=== PATIENT | female | born 1990 | race Hispanic/Latino ===

== ENCOUNTER 2017-10-24 13:53 | Emergency (ER) | payer BC ==
[2017-10-24 14:01] VITALS: BP 121/72; PULSE 109; RESP 16; TEMP 98.2; O2SAT 100
--- NOTE | 2017-10-24 15:57 | ED PDOC ---
Lower Extremity Pain/Injury Time Seen by Provider: 10/24/17 14:44 Chief Complaint (Nursing): Lower Extremity Problem/Injury Chief Complaint (Provider): Ankle pain History Per: Patient History/Exam Limitations: no limitations Onset/Duration Of Symptoms: Hrs (earlier today) Current Symptoms Are (Timing): Still Present Additional Complaint(s): Jesica Celeste is a 26 year old female, with no significant past medical history, who presents to the emergency department complaining of left ankle pain s/p fall onset earlier today. Patient reports she was rock climbing, fell off the rock that was approximately 6ft high and twisted her left ankle. She denies any numbness or tingling. No further medical complaints. PMD: None provided. - Ankle/Foot Description Of Injury: Twisted Past Medical History Reviewed: Historical Data, Nursing Documentation, Vital Signs Vital Signs: Last Vital Signs Temp 98.2 F 10/24/17 13:59 Pulse 109 H 10/24/17 13:59 Resp 16 10/24/17 13:59 BP 121/72 10/24/17 13:59 Pulse Ox 100 10/24/17 13:59 - Medical History PMH: No Chronic Diseases - Surgical History Surgical History: No Surg Hx - Family History Family History: States: Unknown Family Hx - Social History Current smoker - smoking cessation education provided: No Alcohol: None Drugs: Denies - Home Medications Home Medications: Ambulatory Orders Medication Instructions Recorded oxyCODONE/Acetaminophen [Percocet 1 ea PO Q6 PRN #10 tab 10/24/17 5/325 mg Tab] - Allergies Allergies/Adverse Reactions: Allergies Allergy/AdvReac Type Severity Reaction Status Date / Time No Known Allergies Allergy Verified 10/24/17 13:58 Review of Systems ROS Statement: Except As Marked, All Systems Reviewed And Found Negative Musculoskeletal: Positive for: Foot Pain (left ankle) Neurological: Negative for: Numbness (or tingling) Physical Exam - Reviewed Nursing Documentation Reviewed: Yes Vital Signs Reviewed: Yes - Physical Exam Appears: Positive for: Well, Non-toxic, No Acute Distress Head Exam: Positive for: ATRAUMATIC, NORMAL INSPECTION, NORMOCEPHALIC Skin: Positive for: Normal Color, Warm, Dry Eye Exam: Positive for: Normal appearance Neck: Positive for: Painless ROM Respiratory: Negative for: Respiratory Distress Pulses-Dorsalis Pedis (L): 2+ Pulses-Dorsalis Pedis (R): 2+ Extremity: Positive for: Tenderness (left ankle moderate tenderness to lateral malleolus. ), Capillary Refill (<2 sec), Swelling (left ankle moderate ). Negative for: Deformity, Other (No foot, leg, or knee tenderness) Neurologic/Psych: Positive for: Alert, Oriented (x3). Negative for: Motor/ Sensory Deficits - ECG O2 Sat by Pulse Oximetry: 100 (RA) Pulse Ox Interpretation: Normal - Radiology X-Ray: Interpreted by Me (L ankle x-ray) X-Ray Interpretation: Other (possible avulsion fx at distal medial malleolus) - Progress ED Course And Treament: Pt. initially refused pain meds. Ice pack applied. X-ray ordered. 1555 Pt. requesting pain meds. Naproxen 500mg PO ordered. X-rays reviewed which showed possible avulsion fx. 1630 Pt. evaluated by Harpal, podiatry resident, who spoke with Dr. Carr. Pt. splinted by Harpal in ED and arranged for outpt f/u in podiatry clinic Pt. searched on [place] [employer] Aware and shows no previous narcotic rx's. Pt. will be prescribed Percocet. Informed of risks of abuse and dependence. Instructed to first take NSAIDs for pain and if pain is unrelieved then pt. is to take Percocet. Medical Decision Making Medical Decision Making: Initial Impression: Ankle injury Initial Plan: --Ankle left 3 views routine [RAD] --reevaluation 16:01 Ankle X-Ray FINDINGS: BONES: is a small ossicles adjacent and distal to the medial malleolus may represent small avulsion fracture. Otherwise no evidence of acute fracture. JOINTS: Normal. No osteoarthritis. Ankle mortise maintained. Talar dome intact SOFT TISSUES: Moderate soft tissue swelling more prominent at the lateral malleolus. OTHER FINDINGS: None. IMPRESSION: Small ossicle adjacent to the medial malleolus may represent small avulsion fracture. Moderate soft tissue swelling more prominent at the lateral malleolus. ~ Scribe Attestation: Documented by David Duke, acting as a scribe for Walker Bahena PA-C. Provider Scribe Attestation: All medical record entries made by the Scribe were at my direction and personally dictated by me. I have reviewed the chart and agree that the record accurately reflects my personal performance of the history, physical exam, medical decision making, and the department course for this patient. I have also personally directed, reviewed, and agree with the discharge instructions and disposition. Disposition - Clinical Impression Clinical Impression: Ankle fracture - Patient ED Disposition Is Patient to be Admitted: No - Disposition Referrals: Podiatry Clinic [Outside] Disposition: Routine/Home Disposition Time: 16:58 Condition: STABLE Prescriptions: oxyCODONE/Acetaminophen [Percocet 5/325 mg Tab] 1 ea PO Q6 PRN #10 tab PRN Reason: Pain Instructions: Ankle Fracture (ED), Splint Care (ED), Crutch Instructions (ED) Forms: [employer] (Danish), [facility] ED School/Work Excuse Print Language: BOLIVIAN
--- NOTE | 2017-10-24 16:02 | RAD ---
PROCEDURE: Left Ankle Radiographs. HISTORY: trauma COMPARISON: None FINDINGS: BONES: is a small ossicles adjacent and distal to the medial malleolus may represent small avulsion fracture. Otherwise no evidence of acute fracture. JOINTS: Normal. No osteoarthritis. Ankle mortise maintained. Talar dome intact SOFT TISSUES: Moderate soft tissue swelling more prominent at the lateral malleolus. OTHER FINDINGS: None. IMPRESSION: Small ossicle adjacent to the medial malleolus may represent small avulsion fracture. Moderate soft tissue swelling more prominent at the lateral malleolus.
--- NOTE | 2017-10-24 17:24 | CP.PCM.CON ---
History of Present Illness - History of Present Illness History of Present Illness: 26 year old female seen in ED complaining of left ankle pain. 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 Patient felt immediate pain to her left ankle and was unable to weightbear following the injury. Patient states that ankle has become swollen since injury. Patient denies any further pedal complaints at this time. Denies N /V/F/C/CP/SOB/D/posterior calf pain. Patient was AAO x 3 during examination. She denies taking any medication to help with the pain. Review of Systems - Review of Systems Review of Systems: ROS as per HPI Past Patient History - Past Social History Alcohol: None Drugs: Denies - PSYCHIATRIC Hx Substance Use: No - SURGICAL HISTORY Hx Surgeries: No Meds Home Medications: Home Medication List Medication Instructions Recorded Confirmed Type oxyCODONE/Acetaminophen [Percocet 1 ea PO Q6 PRN #10 tab 10/24/17 Rx 5/325 mg Tab] Allergies/Adverse Reactions: Allergies Allergy/AdvReac Type Severity Reaction Status Date / Time No Known Allergies Allergy Verified 10/24/17 13:58 Physical Exam - Constitutional Appears: Well, Non-toxic, No Acute Distress - Extremities Exam Additional comments: LLE focused exam: Vasc: DP/PT pulses palpable 2/4 b/l. Skin temperature warm to warm from proximal to distal, WNL. CFT < 3 seconds to all digits b/l. Moderate edema noted to medial and lateral mal of left leg Neuro: Epicritic and protective sensation grossly intact b/l Derm: Minimal ecchymosis noted to medial malleolus. No open lesions, wounds, maceration, xerosis or abnormal growths noted b/l. Nails well manicured and normotrophic 1-10 b/l MSK: Severe POP to medial and lateral malleolus with medial mal > lateral. No POP to proximal fibula, achilles tendon or its insertion site, styloid process of fifth metatarsal, Navicular tuberosity, or lis franc joint. Pain at ankle joint with dorsiflexion and plantarflexion - Neurological Exam Neurological exam: Alert, Oriented x3 - Psychiatric Exam Psychiatric exam: Normal Affect, Normal Mood Results - Vital Signs Recent Vital Signs: Last Vital Signs Temp 98.2 F 10/24/17 13:59 Pulse 109 H 10/24/17 13:59 Resp 16 10/24/17 13:59 BP 121/72 10/24/17 13:59 Pulse Ox 100 10/24/17 17:00 Assessment & Plan - Assessment and Plan (Free Text) Assessment: 26 year old female seen in ED for medial malleolus avulsion fracture Plan: Patient seen and evaluated in ED Plan discussed with attending Dr. Carr Ankle xrays viewed: Small ossicle adjacent to the medial malleolus may represent small avulsion fracture. Moderate soft tissue more prominent at the lateral malleolus Posterior splint applied to left leg and patient instructed on proper use of crutches Patient instructed on RICE therapy Rx: Percocet for pain Patient to remain NWB and f/u in podiatry clinic in one week - Date & Time Date: 10/24/17 Time: 17:31
== END 2017-10-24 17:05 | disposition home or self-care (01) ==
LOC: H.ER 13:53
DX: S82.52XA Displaced fracture of medial malleolus of left tibia, initial encounter for closed fracture (principal); W17.89XA Other fall from one level to another, initial encounter; Y93.31 Activity, mountain climbing, rock climbing and wall climbing